=== PATIENT | male | born 2005 | race Caucasian/White ===

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

== ENCOUNTER 2023-12-03 14:03 | Inpatient (IN) | payer SELFPAY ==
--- OUTSIDE RECORDS SUMMARY | 2023-12-03 14:06 | XMS REPORT | Continuity of Care Document ---
Author Name Unknown Address [address] [place] [address] [facility] Address [address] [place] [address] Care Team Providers Care Deputy Chief Magistrate Name Role Phone Andrew Padilla Kan Primary Care Physician [phone] Fabiana EDUARDO, Olga Aviles Attending Clinician Unavailab le Doctor Unassigned, [place] Attending Clinician U navailable Only, Ang Db Test Attending Clinician Unavailshannan Singh MD, Wendy Attending Clinician [phone] Payers Payer Name Policy Type Policy Number Effective Date Expiration Date Source [facility]AN [id number] 2018-Present Medicaid [id number] 2019 00:00:00 [facility] Allergies, Adverse Reactions, Alerts Allergy Name Allergy Type Status Severity Reaction(s) Onset Date Inactive Date Treating Clinician Comments Source NO KNOWN ALLERGIE S Drug Class Active Univers [facility] Social History Social Habit Start Date Stop Date Quantity Comments Source Sexual [facility] Exposure to SARS-CoV-2 (event) 2021-03-09 00:00:00 2021-04-08 09:17:00 Yes [facility] Sex Assigned At 2005 00:00:00 2005 00:00:00 [facility] Smoking Status Start Date Stop Date Source Tobacco smoking consumption unknown [facility] Medications Ordered Medication Name Filled Medication Name Start Date Stop Date Current Medication? Ordering Clinician Indication Dosage Frequency Signature (SIG) Comments Components Source neomycin-po lymyxin-hyd rocortisone 3.5-10,000- 1 mg/mL-unit/ mL-% otic susp 09-01 00:00: 00 Yes [id number] Apply 2-4 drops daily to removed nail borders, following epsom salt soaks in warm water, then bandage [facility] Encounters Start Date/Time End Date/Time Encounter Type Admission Type Attending Clinicians Care Facility Care Department Encounter ID Source 2021-04-09 00:00:00 2021-04-09 00:00:00 Letter (Out) Olga Jung [facility] [id number] [facility] 2021-04-09 00:00:00 2021-04-09 00:00:00 Patient Secure Msg Doctor Unassigned, [place] [facility] 1..[id number] [facility] 2021-04-08 09:10:30 2021-04-08 09:20:30 Laboratory Only Only, Ang Db Test [facility] [id number] [facility] 2021-04-08 09:15:00 2021-04-08 09:15:00 Outpatient R [facility] [id number] [facility]
[2023-12-03] MEDS ORDERED: dexAMETHasone 10 MG/ML VIAL ONE (14:22)
[2023-12-03] MEDS ORDERED: NA CHLORIDE 0.9% 1,000 ML ONE ×2 (14:23→15:56)
[2023-12-03] MEDS ORDERED: ONDANSETRON 4 MG/2 ML VIAL ONE (14:33)
[2023-12-03 14:40] LABS: Absolute Lymphocytes (CBC) 0.6 K/uL (0.7-4.9); Absolute Monocytes 1.4 K/uL (0.1-1.3); Absolute Neutrophil 10.2 K/uL (1.8-8.0); Basophils % 0.2 % (0-1.3); Hematocrit 52.8 % (39.6-49.0); Hemoglobin 17.5 g/dL (13.6-17.9); Lymphocytes % 5.1 % (15.3-44.8); MCHC 33.1 g/dL (32.0-36.0); MCV 84.6 fL (80-100); MPV 8.7 fL (7.6-11.3); Monocytes % 11.5 % (3.3-12.3); Neutrophils % 83.2 % (41.7-73.7); Nucleated Red Blood Cells % 0.2 % (0-0); Platelets 167 thou/uL (152-406); RBC Red Blood Cell Count 6.25 M/uL (4.33-5.43); Red Cell Distribution Width 14.6 % (12.1-15.2)
[2023-12-03 14:53] LABS: ALT/SGPT 218 U/L (16-61); Albumin 3.9 g/dL (3.4-5.0); Alkaline Phosphatase 87 U/L (45-117); Anion Gap 9.2 mEq/L (5.0-15.0); BUN Blood Urea Nitrogen 29 mg/dL (7-18); Bicarbonate 27 mEq/L (21-32); Bilirubin Total 0.6 mg/dL (0.2-1.0); Glomerular Filtration Rate 45 ml/min (=/>90); Glucose Level 108 mg/dL (74-106); Lipase 13 U/L (13-75); Potassium 4.2 mEq/L (3.5-5.1); Protein, Total 7.9 g/dL (6.4-8.2); Sodium Level 136 mEq/L (136-145)
--- NOTE | 2023-12-03 15:05 | RAD REPORT ---
EXAM DESCRIPTION: CT - Head C Spine Cap Wo Con - 12/03/2023 2:33 pm CLINICAL HISTORY: Head and neck injury with chest and abdominal pain status post fall. Right leg num bness TECHNIQUE: Computed axial tomography of head, neck, chest, abdomen and pelvis obtained. IV and oral contrast not requested. Coronal and sagittal reconstruction performed. All CT scans are performed using dose optimization technique as appropriate and may include automated exposure control or mA/KV adjustment according to patient size. COMPARISON: None FINDINGS: An intracranial bleed is not seen. The ventricles are normal in caliber. An extra-axial fluid collection is not noted. Fluid within the sinuses/mastoids is not seen. A cervical fracture is not seen. No dislocation is noted. The evaluation of mediastinum, marie, vessels, solid organs and bowel are limited secondary to the lac k of contrast administration. A mediastinal hematoma is not noted. A pleural effusion is not seen. A lung contusion is not present. The liver,spleen, pancreas, adrenals,kidneys and bladder do not demonstrate an acute traumatic injury The musculature of medial compartment right thigh and right gluteus is thickened and edematous with e anna involving the fascia IMPRESSION: No acute intracranial abnormality is seen. A cervical fracture is not visualized. If the patient continues to have symptoms to suggest intracran ial/spinal cord pathology MRI be recommended No acute traumatic abnormality involving the chest, abdomen or pelvis The musculature of the medial compartment right thigh and right gluteus is thickened and edematous wi th edema involving the fascia . This has the appearance of a myositis
[2023-12-03 15:32] LABS: AST/SGOT 1172 U/L (15-37)
[2023-12-03] MEDS ORDERED: HYDROCODONE/APAP 7.5/325 MG TAB ONE (15:55)
[2023-12-03 15:58] LABS: PTT, Activated Partial Thromb 31.5 SECONDS (24.3-36.9); Protime INR 1.28
[2023-12-03 16:09] LABS: Specific Gravity 1.009 (1.005-1.030); Sqamous Epithelial <5 /HPF (None Seen); Urine Bacteria <20 /HPF (<20); Urine Bilirubin NEGATIVE (Negative); Urine Blood 3+ (OVER) (Negative); Urine Clarity Extremely Turbid (Clear); Urine Color Colorless (Yellow); Urine Culture Reflex Order NOT NEEDED; Urine Glucose NEGATIVE (Negative); Urine Ketones NEGATIVE (Negative); Urine Micro Reflex YN NO BILL MICROSCOPIC; Urine Mucus Slight /HPF (None Seen); Urine Nitrite NEGATIVE (Negative); Urine Protein 1+ (Negative); Urine RBC <5 /HPF (None Seen); Urine Urobilinogen Normal (Normal); Urine WBC Clump Occasional /HPF (None Seen); Urine pH 5.5 (5.0-7.0)
[2023-12-03 16:20] LABS: Barbiturates NEGATIVE (NEGATIVE); Benzodiazepines NEGATIVE (NEGATIVE); Cocaine NEGATIVE (NEGATIVE); METHAMPHETAM NEGATIVE (NEGATIVE); Methadone NEGATIVE (NEGATIVE); Opiates NEGATIVE (NEGATIVE); Phencyclidine NEGATIVE (NEGATIVE); THC Cannibis POSITIVE (NEGATIVE)
[2023-12-03 16:34] LABS: Creatine Phosphokinase > 13020 U/L (39-308)
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
[2023-12-03] MEDS: D5W 1,000 ML with NA BICARB 8.4% 50 MEQ IV SCH (18:23)
[2023-12-03 18:53] VITALS: O2SAT 99
[2023-12-03 18:54] VITALS: BMI 19.5
[2023-12-03] MEDS: CODEINE 30MG/APAP 300MG TAB PO PRN (21:45)
[2023-12-04 07:06] LABS: Absolute Lymphocytes (CBC) 0.6 K/uL (0.7-4.9); Absolute Monocytes 1.1 K/uL (0.1-1.3); Absolute Neutrophil 10.2 K/uL (1.8-8.0); Basophils % 0.2 % (0-1.3); Hematocrit 46.9 % (39.6-49.0); Hemoglobin 15.7 g/dL (13.6-17.9); Lymphocytes % 5.4 % (15.3-44.8); MCH 28.4 pg (27.0-35.0); MCHC 33.5 g/dL (32.0-36.0); MCV 84.7 fL (80-100); MPV 8.6 fL (7.6-11.3); Monocytes % 8.9 % (3.3-12.3); Neutrophils % 85.5 % (41.7-73.7); Platelets 169 thou/uL (152-406); RBC Red Blood Cell Count 5.54 M/uL (4.33-5.43); Red Cell Distribution Width 14.7 % (12.1-15.2)
[2023-12-04 07:33] LABS: Albumin 3.4 g/dL (3.4-5.0); Albumin/Globulin Ratio 0.9 (1.1-1.8); Anion Gap 5.1 mEq/L (5.0-15.0); Bilirubin Total 0.5 mg/dL (0.2-1.0); Globulin 3.6 g/dL (2.3-3.5); Magnesium 2.6 mg/dL (1.6-2.4); Potassium 4.1 mEq/L (3.5-5.1)
[2023-12-04 08:08] LABS: Blood Morphology Comment NOT SEEN (NOT SEEN); Platelet Estimate ADEQ; White Blood Cell Scan OK (OK)
--- NOTE | 2023-12-04 09:15 | P.PN ---
Subjective Date of Service: 12/04/23 Chief Complaint: Rhabdomyolysis Right leg pain controlled. Analgesia No reported suicidal thoughts, Physical Exam General: Alert, In no apparent distress, Oriented x3 HEENT: Other (right cheek abraision) Neck: Supple, 2+ carotid pulse no bruit Respiratory: Clear to auscultation bilaterally, Normal air movement Cardiovascular: No edema, Normal pulses, Regular rate/rhythm Capillary refill: <2 Seconds Gastrointestinal: Normal bowel sounds, Soft and benign Musculoskeletal: No clubbing, No swelling, Other (Right leg pain with range of motion) Integumentary: Other (right thigh abrasions from cutting, CDI, no drainage) Neurological: Normal speech, Normal strength at 5/5 x4 extr <Ana Miller - Last Filed: 12/04/23 09:16> Date of Service: 12/04/23 <Raymundo Camacho - Last Filed: 12/04/23 16:52> Review of Systems Per HPI <Ana Miller - Last Filed: 12/04/23 09:16> Physical Examination - Vital Signs Temperature: 97.2 F Blood Pressure: 123/74 Pulse: 72 Respirations: 14 Pulse Ox (%): 98 - Studies Laboratory Data (last 24 hrs) 12/03/23 12/03/23 12/03/23 15:40 14:26 14:26 WBC 12.20 H Hgb 17.5 Hct 52.8 H Plt Count 167 PT 14.0 H INR 1.28 APTT 31.5 Sodium 136 Potassium 4.2 BUN 29 H Creatinine 2.12 H Glucose 108 H Total Bilirubin 0.6 AST 1172 H ALT 218 H Alkaline Phosphatase 87 Lipase 13 <Ana Miller - Last Filed: 12/04/23 09:16> Assessment And Plan - Plan Assessment plan Rhabdomyolysis Leukocytosis Judicious IV fluid, trend CK, UA [id number] Myoglobin pending Acute kidney injury Hematuria Improved overnight with IV fluid Trend kidney function UA 3+ blood, turbid Right thigh myocytitis As needed analgesics, Fall precaution Transaminitis AST 1172, 1330 [id number], 321 Substance abuse Urine drug screen positive THC History of cutting, History of suicidal thoughts Psych eval History of ADHD Currently not on medications Full code DVT heparin Diet regular Disposition pending psych eval Discharge Plan: Home - Code Status/Comfort Care Code Status: Full Code Critical Care: No Time Spent Managing PTS Care (In Minutes): 35 <Ana Miller - Last Filed: 12/04/23 09:16> Date of Service: 12/04/23 Patient chart was reviewed and patient was seen and examined. Had a long talk with family. Agree with the assessment and plan. Patient presented with rhabdomyolysis. Trending enzymes along with myoglobin. Most of the MDM was done by myself and plan of care was discussed with ERICK as well as the patient. Plan to discharge once myoglobin improved. Anticipated length of stay is 3 to 4 days. <Raymundo Camacho - Last Filed: 12/04/23 16:52>
[2023-12-04] MEDS: NA CHLORIDE 0.9% 1,000 ML IV SCH (10:16)
[2023-12-04] MEDS: METHYLPREDNISOLONE 125 MG INJ IV ONE (14:35)
[2023-12-04] MEDS: NA CHLORIDE 0.9% 1,000 ML IV ONE (14:36)
--- NOTE | 2023-12-05 07:33 | P.PN ---
Subjective Date of Service: 12/05/23 Chief Complaint: Rhabdomyolysis Right leg pain controlled. Analgesia No reported suicidal thoughts, Physical Exam General: Alert, In no apparent distress, Oriented x3 HEENT: Other (right cheek abraision) Neck: Supple, 2+ carotid pulse no bruit Respiratory: Clear to auscultation bilaterally, Normal air movement Cardiovascular: No edema, Normal pulses, Regular rate/rhythm Capillary refill: <2 Seconds Gastrointestinal: Normal bowel sounds, Soft and benign Musculoskeletal: No clubbing, No swelling, Other (Right leg pain with range of motion) Integumentary: Other (right thigh abrasions from cutting, CDI, no drainage) Neurological: Normal speech, Normal strength at 5/5 x4 extr Review of Systems per HPI Physical Examination - Vital Signs Temperature: 98.1 F Blood Pressure: 108/62 Pulse: 55 Respirations: 15 Pulse Ox (%): 98 Assessment And Plan - Plan Assessment plan Rhabdomyolysis Leukocytosis Judicious IV fluid, trend CK, UA [id number] Myoglobin pending Acute kidney injury Hematuria Improved overnight with IV fluid Trend kidney function UA 3+ blood, turbid Right thigh myocytitis As needed analgesics, Fall precaution Transaminitis AST 1172, 1330 [id number], 321 Substance abuse Urine drug screen positive THC History of cutting, History of suicidal thoughts Psych eval History of ADHD Currently not on medications Full code DVT heparin Diet regular Disposition pending psych eval Discharge Plan: Home - Code Status/Comfort Care Code Status: Full Code Critical Care: No Time Spent Managing PTS Care (In Minutes): 35
[2023-12-05 08:23] LABS: Absolute Basophils 0.1 K/uL (0-0.5); Absolute Lymphocytes (CBC) 1.6 K/uL (0.7-4.9); Absolute Neutrophil 6.7 K/uL (1.8-8.0); Basophils % 0.5 % (0-1.3); Eosinophils % 0.2 % (0-4.4); Hematocrit 45.5 % (39.6-49.0); Lymphocytes % 17.5 % (15.3-44.8); MCHC 32.9 g/dL (32.0-36.0); MCV 85.1 fL (80-100); Monocytes % 10.4 % (3.3-12.3); Neutrophils % 71.4 % (41.7-73.7); Platelets 151 thou/uL (152-406); RBC Red Blood Cell Count 5.35 M/uL (4.33-5.43); Red Cell Distribution Width 14.2 % (12.1-15.2)
[2023-12-05 08:40] LABS: Albumin 3.2 g/dL (3.4-5.0); Anion Gap 5.2 mEq/L (5.0-15.0); Bilirubin Total 0.6 mg/dL (0.2-1.0); Globulin 3.2 g/dL (2.3-3.5); Potassium 4.2 mEq/L (3.5-5.1); Protein, Total 6.4 g/dL (6.4-8.2)
[2023-12-05] MEDS: NA CHLORIDE 0.9% 500 ML IV ONE (10:37)
[2023-12-05] MEDS: NA CHLORIDE 0.9% 1,000 ML IV ONE (10:49)
[2023-12-05] MEDS ORDERED: NA CHLORIDE 0.9% 1,000 ML IV ONE (15:08)
--- NOTE | 2023-12-06 01:44 | P.DS ---
Discharge Date: 12/05/23 Disposition: ROUTINE DISCHARGE Discharge Condition: GOOD Reason for Admission: Rhabdomyolysis Brief History of Present Illness: 17 year old male with past medical history ADHD, hx of cutting, SI thoughts presents to the emergency room for Right leg pain, numbness, discolored urine. He reports being at a [employer] last night, smoking marijuana, "passing out out and waking up after being on the ground all night. He thinks what he smoke was laced with something." He reports right lower extremity leg pain, numbness that is worse with ambulation.He reports pain started after waking up on the ground today. RLE superficial cutting albert he reports from suicidal ideation. 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 He denies having SI at this moment, he denies having a current plan. He denies fever, NVD, or dizziness. no reported leg swelling. Plan to admit of rhabdomyolysis. Hospital Course: Patient's clinical symptoms are much better. Patient states he no longer having any pain and ambulating without difficulty. Patient's CPK is been improving. Patient is ALT/AST are improved. Patient's renal function is stable. Patient's urine output is clear. Patient was advised to drink 3 L of fluid daily, as patient did not want to stay in the hospital for further treatment. Patient was told to come back to the ER if his urine became dark and discolored. Vital Signs/Physical Exam: Temp Pulse Resp BP Pulse Ox 98.1 F 55 15 108/62 98 12/05/23 15:04 12/05/23 15:04 12/05/23 15:04 12/05/23 15:04 12/05/23 15:04 General: Alert, In no apparent distress, Oriented x3 Laboratory Data at Discharge: WBC 9.40 thou/uL (4.3-10.9) 12/05/23 08:06 Hgb 15.0 g/dL (13.6-17.9) 12/05/23 08:06 Hct 45.5 % (39.6-49.0) 12/05/23 08:06 Plt Count 151 thou/uL (152-406) L 12/05/23 08:06 PT 14.0 SECONDS (9.5-12.5) H 12/03/23 15:40 INR 1.28 12/03/23 15:40 APTT 31.5 SECONDS (24.3-36.9) 12/03/23 15:40 Sodium 142 mEq/L (136-145) 12/05/23 08:06 Potassium 4.2 mEq/L (3.5-5.1) 12/05/23 08:06 BUN 18 mg/dL (7-18) 12/05/23 08:06 Creatinine 1.28 mg/dL (0.70-1.30) 12/05/23 08:06 Glucose 94 mg/dL (74-106) 12/05/23 08:06 Magnesium 2.6 mg/dL (1.6-2.4) H 12/04/23 06:46 Total Bilirubin 0.6 mg/dL (0.2-1.0) 12/05/23 08:06 AST 956 U/L (15-37) H 12/05/23 08:06 ALT 328 U/L (16-61) H 12/05/23 08:06 Alkaline Phosphatase 62 U/L (45-117) 12/05/23 08:06 Lipase 13 U/L (13-75) 12/03/23 14:26 Home Medications: NK [No Home Meds] 12/03/23 Physician Discharge Instructions: -DC IV and DC home -Follow-up with PCP in 1 to 2 weeks -Please call Dr. Camacho at [phone] if any questions regarding hospital stay -Please call nursing station at [phone] if any nursing or medication questi ons -Return to the emergency room if symptoms worsen -Encouraged to drink 3 to 4 L of fluids daily for the next 5 to 7 days -No strenuous activities x 1 week -If discolored urine return to the emergency room -Repeat CPK in 1 week Diet: Regular Activity: No strenuous activities Followup: NONE,NONE [Primary Care Provider] - Time spent managing pt's care (in minutes): 35
[2023-12-06 02:17] VITALS: BP 118/68; TEMP 98.3
== END 2023-12-05 17:52 | disposition home or self-care (01) | DRG 558 ==
LOC: ER 14:03 → ERHOLD 17:18 → 2ND 17:40
PROVIDERS: ADMIT Hospitalist; ATTEND Hospitalist
DX: M62.82 Rhabdomyolysis (principal); N17.9 Acute kidney failure, unspecified; R45.851 Suicidal ideations; M60.851 Other myositis, right thigh; F12.10 Cannabis abuse, uncomplicated; D72.829 Elevated white blood cell count, unspecified; F17.210 Nicotine dependence, cigarettes, uncomplicated; R31.9 Hematuria, unspecified; R74.01 Elevation of levels of liver transaminase levels
CPT/HCPCS: 36415; 70450; 71250; 72125; 80053; 80307; 81001; 82077; 82550; 83605; 83690; 83735; 83874; 85025; 85610; 85730; 87040; 96361; 96374; 96375; 99285; J1100; J2405; J2919; J7030

== ENCOUNTER 2024-08-24 15:53 | Emergency (ER) | payer SELFPAY ==
[2024-08-24 16:37] LABS: SARS-CoV-2 Antigen CONTROL BLUE LINE VIS/BG OK; SARS-CoV-2 Antigen Rapid Res Negative (Negative)
--- NOTE | 2024-08-24 16:56 | ER ---
Nurse's Notes [facility] Name: Gino Ziegler Age: 18 yrs Sex: Male : 2005 Arrival Date: 08/24/2024 Time: 15:53 Bed IW2 Private MD: Diagnosis: Influenza due to unidentified influenza virus with other respiratory manifestations Presentation: 08/24 16:03 Chief complaint: Patient states: cough x 2 days, body aches that began last night. ss Parents recently diagnosed with flu A. Coronavirus screen: Client denies travel out of the [place] in the last 14 days. Ebola Screen: Patient denies exposure to infectious person. Patient denies travel to an Ebola-affected area in the 21 days before illness onset. Initial Sepsis Screen: Does the patient meet any 2 criteria? No. Patient's initial sepsis screen is negative. Does the patient have a suspected source of infection? No. Patient's initial sepsis screen is negative. Risk Assessment: Do you want to hurt yourself or someone else? Patient reports no desire to harm self or others. Onset of symptoms was August 22, 2024. 16:03 Method Of Arrival: Ambulatory ss 16:03 Acuity: FANY 4 ss Triage Assessment: 17:10 General: Appears in no apparent distress. uncomfortable, ill, Behavior is calm, vc1 cooperative, appropriate for age. EENT: Eyes are tearing on right eye and left eye Nares with drainage noted Reports nasal congestion. Neuro: Level of Consciousness is awake, alert, obeys commands, Oriented to person, place, time, situation, Appropriate for age. Respiratory: Airway is patent Respiratory effort is even, unlabored, Respiratory pattern is regular, symmetrical, Breath sounds are clear. Derm: Skin is intact, is healthy with good turgor, Skin is dry, Skin is normal, Skin temperature is warm. Historical: - Allergies: 16:04 No Known Allergies; ss - Home Meds: 16:04 None [Active]; ss - PMHx: 16:04 None; ss - PSHx: 16:04 FB removed from lung as a child; ss - Infectious Disease History:: Denies. - Social history:: Smoking status: Patient reports the use of cigarette tobacco products, smokes one-half pack cigarettes per day. Screenin:09 [facility] ED Fall Risk Assessment (Adult) History of falling in the last 3 months, vc1 including since admission No falls in past 3 months (0 pts) Confusion or Disorientation No (0 pts) Intoxicated or Sedated No (0 pts) Impaired Gait No (0 pts) Mobility Assist Device Used No (0 pt) Altered Elimination No (0 pt) Score/Fall Risk Level 0 - 2 = Low Risk Oriented to surroundings, Maintained a safe environment, Educated pt \T\ family on fall prevention, incl call for assistance when getting out of bed. Abuse screen: Denies threats or abuse. Nutritional screening: No deficits noted. Tuberculosis screening: No symptoms or risk factors identified. Vital Signs: 16:03 BP 121 / 79; Pulse 96; Resp 16; Temp 99.8(O); Pulse Ox 98% on R/A; Weight 72.57 kg; ss Height 6 ft. 4 in. ; Pain 5/10; 16:03 Body Mass Index 19.48 (72.57 kg, 193.04 cm) ss 16:03 Pain Scale: Adult ED Course: 15:57 Patient arrived in ED. sj2 16:01 Brian Easton PA is PHCP. cp 16:01 Roney Farris MD is Attending Physician. cp 16:04 Triage completed. ss 16:04 Arm band placed on left wrist. ss 17:10 treated and discharged from triage. Provided Education on: viral infection, treat vc1 symptoms. 17:10 No provider procedures requiring assistance completed. Patient did not have IV access vc1 during this emergency room visit. Administered Medications: No medications were administered Medication: 17:10 VIS not applicable for this client. vc1 Outcome: 16:55 Discharge ordered by MD. cp 17:11 Discharged to home ambulatory, vc1 17:11 Condition: good 17:11 Discharge instructions given to patient, Instructed on discharge instructions, follow up and referral plans. medication usage, Demonstrated understanding of instructions, follow-up care, medications, Prescriptions given X 3, 17:11 Patient left the ED. vc1 Signatures: Judith Figueroa RN RN Brian Easton PA PA cp Calcote, Vanessa, RN RN vc1 Franklin Brown sj2
--- NOTE | 2024-08-24 16:56 | EDPHYS ---
Physician Documentation [facility] Name: Gino Ziegler Age: 18 yrs Sex: Male : 2005 Arrival Date: 08/24/2024 Time: 15:53 Bed IW2 Private MD: ED Physician Roney Farris HPI: 08/24 16:50 This 18 yrs old Male presents to ER via Ambulatory with complaints of Cold Symptoms, cp FLU TESTING. 16:50 The patient or guardian reports cough, that is intermittent, flu symptoms, body aches, cp fever, chills. Onset: The symptoms/episode began/occurred yesterday. Reports close contact with parents who tested positive for flu recently. Historical: - Allergies: 16:04 No Known Allergies; ss - Home Meds: 16:04 None [Active]; ss - PMHx: 16:04 None; ss - PSHx: 16:04 FB removed from lung as a child; ss - Infectious Disease History:: Denies. - Social history:: Smoking status: Patient reports the use of cigarette tobacco products, smokes one-half pack cigarettes per day. ROS: 16:52 Constitutional: Positive for body aches, chills, fever, cp 16:52 ENT: Positive for sore throat, Negative for drainage from ear(s), ear pain, difficulty swallowing, difficulty handling secretions, 16:52 Respiratory: Positive for cough, with no reported sputum, 16:52 Abdomen/GI: Negative for abdominal pain, vomiting, diarrhea, constipation, 16:52 Neuro: Negative for altered mental status, 16:52 All other systems are negative, Exam: 16:53 Head/Face: Normocephalic, atraumatic. cp 16:53 Constitutional: The patient appears in no acute distress, alert, awake, non-toxic, well developed, well nourished, 16:53 Eyes: Periorbital structures: appear normal, Conjunctiva: normal, no exudate, no injection, Sclera: no appreciated abnormality, Lids and lashes: appear normal, bilaterally, 16:53 ENT: External ear(s): are unremarkable, Ear canal(s): are normal, clear, TM's: dullness, bilaterally, Nose: is normal, Mouth: Lips: moist, Oral mucosa: moist, Posterior pharynx: Airway: no evidence of obstruction, patent, Tonsils: no enlargement, no exudate, erythema, that is mild, exudate, is not appreciated, 16:53 Chest/axilla: Inspection: normal, 16:53 Cardiovascular: Rate: normal, 16:53 Respiratory: the patient does not display signs of respiratory distress, Respirations: normal, no use of accessory muscles, no retractions, labored breathing, is not present, Breath sounds: decreased breath sounds, are not appreciated, stridor, is not appreciated, + upper airway congestion. wheezing: is not appreciated, 16:53 Abdomen/GI: Exam negative for discomfort, distension, guarding, Inspection: abdomen appears normal, 16:53 Skin: no rash present. Vital Signs: 16:03 BP 121 / 79; Pulse 96; Resp 16; Temp 99.8(O); Pulse Ox 98% on R/A; Weight 72.57 kg; ss Height 6 ft. 4 in. ; Pain 5/10; 16:03 Body Mass Index 19.48 (72.57 kg, 193.04 cm) 16:03 Pain Scale: Adult ss MDM: 16:15 Differential diagnosis: bronchitis, flu, pneumonia, strep throat. cp 16:55 Medical Screening Exam initiated cp 16:55 Data reviewed: vital signs, nurses notes, lab test result(s), and as a result, I will cp discharge patient. 16:55 Counseling: I had a detailed discussion with the patient and/or guardian regarding the cp historical points, exam findings, and any diagnostic results supporting the discharge/admit diagnosis, lab results, to return to the emergency department if symptoms worsen or persist or if there are any questions or concerns that arise at home. 08/24 16:07 Order name: Flu ss 08/24 16:07 Order name: SARS RAPID ss Administered Medications: No medications were administered Disposition: 08/25 13:48 Chart complete. cp Disposition Summary: 08/24/24 16:55 Discharge Ordered Notes: Location: Home cp Problem: new cp Symptoms: are unchanged cp Condition: Stable cp Diagnosis - Influenza due to unidentified influenza virus with other respiratory manifestations cp Followup: cp - With: Private Physician - When: As needed - Reason: Worsening of condition Discharge Instructions: - Discharge Summary Sheet cp - Influenza, Adult cp Forms: - Medication Reconciliation Form cp - Antibiotic Education cp - Prescription Opioid Use cp - Patient Portal Instructions cp - Leadership Thank You Letter cp Prescriptions: - Bromfed DM 2-30-10 mg/5 mL Oral syrup - administer 10 milliliter ORAL route every 6 hours As needed as needed for cold cp symptoms; 240 milliliter; Refills: 0, Product Selection Permitted - Ibuprofen 800 mg Oral Tablet - take 1 tablet ORAL route every 8 hours As needed take with food; 30 tablet; cp Refills: 0, Product Selection Permitted - Tamiflu 75 mg Oral capsule - take 1 tablet ORAL route every 12 hours for 5 days; 10 tablet; Refills: 0, cp Product Selection Permitted Addendum: 08/27/2024 10:02 Co-signature as Attending Physician, Roney Farris MD I reviewed the patient's care r n provided by the Advanced Practice Provider and agree with the diagnosis and treatment plan. Signatures: Dispatcher [employer] EDRoney Tirado MD MD rn Blanchard, Shelby, RN RN ss Page, Corey, JACKI PA cp
[2024-08-24 17:22] VITALS: BP 121/79; TEMP 99.8; O2SAT 98
== END 2024-08-24 17:11 | disposition home or self-care (01) ==
LOC: ER 15:53
DX: J11.1 Influenza due to unidentified influenza virus with other respiratory manifestations (principal); Z11.52 Encounter for screening for COVID-19
CPT/HCPCS: 36415; 87804; 87811; 99283

== ENCOUNTER 2024-12-08 23:41 | Emergency (ER) | payer SELFPAY ==
--- OUTSIDE RECORDS SUMMARY | 2024-12-08 23:43 | XMS REPORT | Continuity of Care Document ---
Author Name Unknown Address [address] [place] [address] [facility] [place] Address [address] [place] [address] Care Team Providers Care Deputy Fire Chief Name Role Phone Andrew Padilla Primary Care Physician [phone] JOSE NI Attending Clinician Unavailable Fabiana EDUARDO, Olga Aviles Attending Clinician Unavailab le Doctor Unassigned, [place] Attending Clinician U navailable Only, Ang Db Test Attending Clinician UnavailWendy Dave MD Attending Clinician Payers Payer Name Policy Type Policy Number Effective Date Expiration Date Source [facility] [id number] 2018-Present Medicaid [id number] 2019 00:00:00 [facility] Allergies, Adverse Reactions, Alerts Allergy Name Allergy Type Status Severity Reaction(s) Onset Date Inactive Date Treating Clinician Comments Source NO KNOWN ALLERGIE S Drug Class Active [facility] Social History Social Habit Start Date Stop Date Quantity Comments Source Sexual orientation U [facility] Exposure to SARS-CoV-2 (event) 2021-03-09 00:00:00 2021-04-08 09:17:00 Yes [facility] Sex Assigned At 2005 00:00:00 2005 00:00:00 [facility] Smoking Status Start Date Stop Date Source Tobacco smoking consumption unknown [facility] Medications Ordered Medication Name Filled Medication Name Start Date Stop Date Current Medication? Ordering Clinician Indication Dosage Frequency Signature (SIG) Comments Components Source neomycin-po lymyxin-hyd rocortisone 3.5-10,000- 1 mg/mL-unit/ mL-% otic susp 2020-0 1-17 00:00: 00 Yes [id number] Apply 2-4 drops daily to removed nail borders, following epsom salt soaks in warm water, then bandage [facility] Encounters Start Date/Time End Date/Time Encounter Type Admission Type Attending [facility] Facility Care Department Encounter ID Source 2024-10-18 10:46:42 2024-10-23 09:30:[address] [facility] [id number] [facility] 2021-04-09 00:00:00 2021-04-09 00:00:00 Letter (Out) Olga Jung [facility] [id number] [facility] 2021-04-09 00:00:00 2021-04-09 00:00:00 Patient Secure Msg Doctor Unassigned, [place] [facility] [id number] [facility] 2021-04-08 09:10:30 2021-04-08 09:20:30 Laboratory Only Only, Ang Db Test [facility] [id number] [facility] 2021-04-08 09:15:00 2021-04-08 09:15:00 Outpatient R [facility] [id number] [facility]
[2024-12-09 00:26] LABS: Absolute Lymphocytes (CBC) 0.7 K/uL (0.7-4.9); Absolute Monocytes 1.3 K/uL (0.1-1.3); Absolute Neutrophil 13.7 K/uL (1.8-8.0); Basophils % 0.2 % (0-1.3); Eosinophils % 0.1 % (0-4.4); Hematocrit 48.1 % (39.6-49.0); Hemoglobin 15.7 g/dL (13.6-17.9); Lymphocytes % 4.4 % (15.3-44.8); MCH 28.2 pg (27.0-35.0); MCHC 32.7 g/dL (32.0-36.0); MCV 86.2 fL (80-100); MPV 9.3 fL (7.6-11.3); Monocytes % 8.1 % (3.3-12.3); Neutrophils % 87.2 % (41.7-73.7); Platelets 152 thou/uL (152-406); RBC Red Blood Cell Count 5.58 M/uL (4.33-5.43); Red Cell Distribution Width 14.9 % (12.1-15.2)
[2024-12-09 00:29] LABS: PT Prothrombin Time 11.5 SECONDS (10-13.0); PTT, Activated Partial Thromb 25.8 SECONDS (27.2-37.4); Protime INR 1.01
[2024-12-09 00:38] LABS: ALT/SGPT 57 U/L (16-61); AST/SGOT 45 U/L (15-37); Albumin 4.2 g/dL (3.4-5.0); Albumin/Globulin Ratio 1.3 (1.1-1.8); Alkaline Phosphatase 81 U/L (45-117); Anion Gap 19.2 mEq/L (5.0-15.0); BUN Blood Urea Nitrogen 27 mg/dL (7-18); Bicarbonate 17 mEq/L (21-32); Bilirubin Total 0.2 mg/dL (0.2-1.0); Globulin 3.3 g/dL (2.3-3.5); Glomerular Filtration Rate 61 ml/min (=/>90); Glucose Level 162 mg/dL (74-106); Potassium 4.2 mEq/L (3.5-5.1); Protein, Total 7.5 g/dL (6.4-8.2); Sodium Level 139 mEq/L (136-145)
[2024-12-09 00:44] LABS: Bilirubin Direct < 0.2 mg/dL (0-0.2)
[2024-12-09 02:06] LABS: Band Neutrophils 11 % (0-1); Differential Total Cells Count 100; Lymphocytes 4 % (15-42); Monocytes 9 % (0-10); Reactive Lymphocytes 4 %; Segmented Neutrophils 72 % (40-80)
[2024-12-09 02:07] LABS: Blood Morphology Comment NOT SEEN (NOT SEEN); Platelet Estimate ADEQ
[2024-12-09 02:09] LABS: Barbiturates NEGATIVE (NEGATIVE); Benzodiazepines NEGATIVE (NEGATIVE); Cocaine NEGATIVE (NEGATIVE); METHAMPHETAM NEGATIVE (NEGATIVE); Methadone NEGATIVE (NEGATIVE); Opiates NEGATIVE (NEGATIVE); Phencyclidine NEGATIVE (NEGATIVE); THC Cannibis POSITIVE (NEGATIVE)
--- NOTE | 2024-12-09 02:32 | ER ---
Nurse's Notes [facility]icki Name: Gino Ziegler Age: 18 yrs Sex: Male : 2005 Arrival Date: 12/08/2024 Time: 23:40 Bed 18 Private MD: Diagnosis: Opioid abuse;Suicide attempt;Opioid overdose Presentation: 12/08 23:40 Chief complaint: EMS states: [facility] FOUND HIM ON THE FLOOR DIFFICULTY ha1 BREATHING, POSSIBLE OVERDOSE. ON OUR ARRIVAL OXYGEN SATURATION ON THE LOW 80s. 0.5 mg NARCAN IV GIVEN . SYMPTOMS IMPROVED OXYGEN SATURATION 99 ON 3 L NASAL CANULA. REPORTS TAKING PERCOCET UNKNOWN NUMBER OF PILLS TAKEN. 23:40 Coronavirus screen: Client denies travel out of the [place] in the last 14 days. Ebola ha1 Screen: No symptoms or risks identified at this time. Initial Sepsis Screen: Does the patient meet any 2 criteria? No. Patient's initial sepsis screen is negative. Does the patient have a suspected source of infection? No. Patient's initial sepsis screen is negative. Risk Assessment: Do you want to hurt yourself or someone else? Patient reports no desire to harm self or others. Onset of symptoms was December 09, 2024. 23:40 Method Of Arrival: EMS: [facility] ha1 23:40 Acuity: FANY 2 ha1 Triage Assessment: 23:40 General: Appears uncomfortable, Behavior is drowsy. Pain: Denies pain. Neuro: Level of ha1 Consciousness is awake, obeys commands, confused, lethargic, Oriented to person, place, situation. Cardiovascular: Capillary refill < 3 seconds Patient's skin is warm and dry. Rhythm is atrial fibrillation. Respiratory: Airway is patent Respiratory effort is even, unlabored, Respiratory pattern is regular, symmetrical. GI: No signs and/or symptoms were reported involving the gastrointestinal system. Abdomen is flat, non-distended. Derm: Skin is healthy with good turgor, Skin is moist, Skin is normal. Musculoskeletal: Circulation, motion, and sensation intact. 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 - Infectious Disease History:: Denies. - Social history:: Smoking status: unknown. Screenin:40 [facility] ED Fall Risk Assessment (Adult) History of falling in the last 3 months, ha1 including since admission Yes- single mechanical fall (1 pt) Confusion or Disorientation Yes (5 pts) Intoxicated or Sedated Yes (3 pts) Impaired Gait Yes (1 pt) Mobility Assist Device Used No (0 pt) Altered Elimination Yes (1 pt) Score/Fall Risk Level 3 or more points = High Risk Oriented to surroundings, Maintained a safe environment, Educated pt \\T\\ family on fall prevention, incl call for assistance when getting out of bed, Hourly rounding (assess needs \\T\\ fall precautionary measures) done. Abuse screen: Denies threats or abuse. Denies injuries from another. Nutritional screening: No deficits noted. Tuberculosis screening: No symptoms or risk factors identified. Assessment: 23:40 Reassessment: SEE TRIAGE ASSESSMENT. ha1 23:50 Reassessment: REPORTS SUICIDAL IDEATIONS STATES " I WAS ATTEMPTING TO KILL MYSELF BY ha1 OVERDOSING ON THIS PILLS.". 12/09 00:20 Reassessment: CONTACTED POISON CONTROL BOOKMAKER MAP STATES " CHECK LIVER ENZYMES, ha1 TYLENOL LEVEL, AND REPEAT EK, IF SECOND EKG SHOWS ATRIAL FIBRILLATION TREAT IT INDICATED PER HOSPITAL PROTOCOL. . 00:40 Reassessment: Patient and/or family updated on plan of care and expected duration. Pain ha1 level reassessed. Cardiovascular: Patient's skin is warm and dry. Rhythm is sinus tachycardia. Respiratory: Airway is patent Respiratory effort is even, unlabored, Respiratory pattern is regular, symmetrical. 01:50 Reassessment: Patient and/or family updated on plan of care and expected duration. Pain ha1 level reassessed. Patient is alert, oriented x 3, equal unlabored respirations, skin warm/dry/pink. Cardiovascular: Patient's skin is warm and dry. Rhythm is sinus rhythm. 01:59 General: LISA MALDONADO (MOTHER) [phone]. bm8 02:10 Reassessment: Patient and/or family updated on plan of care and expected duration. Pain ha1 level reassessed. Patient is alert, oriented x 3, equal unlabored respirations, skin warm/dry/pink. NOTIFIED DR. HENDRICKS LOW BP . BP AT 91/49. 03:30 Reassessment: No changes from previously documented assessment. Patient and/or family rg5 updated on plan of care and expected duration. Pain level reassessed. 03:30 General: Appears in no apparent distress. comfortable, Behavior is calm, cooperative, rg5 appropriate for age. Pain: Denies pain. Neuro: Level of Consciousness is awake, alert, Oriented to person, place, time. Cardiovascular: Patient's skin is warm and dry. Respiratory: Airway is patent Respiratory effort is even, unlabored, Respiratory pattern is regular, symmetrical. GI: No signs and/or symptoms were reported involving the gastrointestinal system. : No signs and/or symptoms were reported regarding the genitourinary system. EENT: No signs and/or symptoms were reported regarding the EENT system. Derm: Skin is intact, Skin is dry, Skin is normal, Skin temperature is warm. Musculoskeletal: Circulation, motion, and sensation intact. Range of motion: intact in all extremities. 07:00 General: Appears comfortable, Behavior is calm, cooperative, appropriate for age, aa5 Reports fatigue for 0-12 hours. Pain: Denies pain. Neuro: Level of Consciousness is awake, alert, obeys commands, Oriented to person, place, time, situation, Appropriate for age. Cardiovascular: Heart tones S1 S2 present Rhythm is sinus rhythm. Respiratory: Airway is patent Respiratory effort is even, unlabored, Respiratory pattern is regular, symmetrical. GI: Abdomen is non-distended, Bowel sounds present X 4 quads. Abd is soft and non tender X 4 quads. Patient currently denies nausea. : No signs and/or symptoms were reported regarding the genitourinary system. EENT: No signs and/or symptoms were reported regarding the EENT system. Derm: Skin is pink, warm \\T\\ dry. Musculoskeletal: Range of motion: intact in all extremities. 08:11 Reassessment: Pt's sister in room speaking to patient. . aa5 09:00 Reassessment: Pt sleeping. . aa5 10:46 Reassessment: Pt sleeping. . aa5 11:53 Reassessment: Patient is alert, oriented x 3, equal unlabored respirations, skin aa5 warm/dry/pink. Pt sitting up in bed. . 12:00 Reassessment: Lying on stretcher, eyes closed, respirations even and unlabored. me1 Sleeping. 14:00 Reassessment: Father and step mother at bedside visiting. me1 14:18 Reassessment: vomiting, Dr Farris informed. Rec'd order for zofran 4 mg IV. Patient me1 states, "I usually throw up when Im on opiates". 16:00 Reassessment: Lying on stretcher, eyes closed, respirations even and unlabored. me1 Sleeping. 18:00 Reassessment: Lying on stretcher, eyes closed, respirations even and unlabored. me1 Sleeping. 20:00 Reassessment: Lying on stretcher, eyes closed, respirations even and unlabored. me1 Sleeping. 22:00 Reassessment: Lying on stretcher, eyes closed, respirations even and unlabored. me1 Sleeping. 22:30 Reassessment: No changes from previously documented assessment. Patient and/or family rg5 updated on plan of care and expected duration. Pain level reassessed. General: Appears in no apparent distress. comfortable, Behavior is calm, cooperative, appropriate for age, quiet, sleeping. 12/10 00:00 Reassessment: No changes from previously documented assessment. Patient and/or family rg5 updated on plan of care and expected duration. Pain level reassessed. General: Appears in no apparent distress. comfortable, Behavior is calm, cooperative, appropriate for age, quiet, sleeping. 02:00 Reassessment: No changes from previously documented assessment. Patient and/or family rg5 updated on plan of care and expected duration. Pain level reassessed. General: Appears in no apparent distress. comfortable, Behavior is calm, cooperative, appropriate for age, quiet, sleeping. Cardiovascular: No deficits noted. Respiratory: No deficits noted. Airway is patent Breath sounds are clear. 04:02 Reassessment: No changes from previously documented assessment. Patient and/or family rg5 updated on plan of care and expected duration. Pain level reassessed. General: Appears in no apparent distress. comfortable, Behavior is calm, cooperative, appropriate for age, sleeping. Cardiovascular: No deficits noted. Respiratory: No deficits noted. 06:27 Reassessment: No changes from previously documented assessment. Patient and/or family rg5 updated on plan of care and expected duration. Pain level reassessed. General: Appears in no apparent distress. comfortable, Behavior is calm, cooperative, appropriate for age, quiet, sleeping. Cardiovascular: No deficits noted. Respiratory: No deficits noted. 07:55 General: Appears in no apparent distress. comfortable, Behavior is calm, cooperative, ld1 appropriate for age. Pain: Denies pain. Neuro: Level of Consciousness is obeys commands, Oriented to person, place, time, situation. Cardiovascular: Capillary refill < 3 seconds Patient's skin is warm and dry. Rhythm is sinus rhythm. Respiratory: Airway is patent Respiratory effort is even, unlabored. GI: Abdomen is flat, non-distended. : No signs and/or symptoms were reported regarding the genitourinary system. EENT: No signs and/or symptoms were reported regarding the EENT system. Derm: No signs and/or symptoms reported regarding the dermatologic system. Musculoskeletal: No signs and/or symptoms reported regarding the musculoskeletal system. 12:47 Reassessment: No changes from previously documented assessment. Patient and/or family ld1 updated on plan of care and expected duration. Pain level reassessed. 19:05 General: Appears in no apparent distress. comfortable, Behavior is calm, cooperative, me1 appropriate for age, Reports fatigue for 0-12 hours. Pain: Denies pain. Neuro: Level of Consciousness is awake, alert, obeys commands, Oriented to person, place, time, situation, Appropriate for age. Cardiovascular: Heart tones S1 S2 Capillary refill < 3 seconds Patient's skin is warm and dry. Respiratory: Airway is patent Respiratory effort is even, unlabored, Respiratory pattern is regular, symmetrical. GI: Abdomen is flat, non-distended. : No signs and/or symptoms were reported regarding the genitourinary system. EENT: No signs and/or symptoms were reported regarding the EENT system. Derm: Skin is intact, is healthy with good turgor, Skin is dry, Skin is pink, warm \\T\\ dry. Skin temperature is warm. Musculoskeletal: No signs and/or symptoms reported regarding the musculoskeletal system. Circulation, motion, and sensation intact. Range of motion: intact in all extremities. 21:00 Reassessment: Patient is alert, oriented x 3, equal unlabored respirations, skin me1 warm/dry/pink. 23:00 Reassessment: Patient is alert, oriented x 3, equal unlabored respirations, skin me1 warm/dry/pink. 12/11 00:15 General: Appears in no apparent distress. comfortable. General: Behavior is calm, al5 cooperative. Pain: Denies pain. Neuro: Level of Consciousness is awake, alert, obeys commands, Oriented to person, place, time, situation. Cardiovascular: Capillary refill < 3 seconds Patient's skin is warm and dry. Respiratory: Airway is patent Respiratory effort is even, unlabored, Respiratory pattern is regular, symmetrical. GI: No signs and/or symptoms were reported involving the gastrointestinal system. : No signs and/or symptoms were reported regarding the genitourinary system. EENT: No signs and/or symptoms were reported regarding the EENT system. Derm: Skin is intact, is healthy with good turgor, Skin is pink, warm \\T\\ dry. normal. Musculoskeletal: No signs and/or symptoms reported regarding the musculoskeletal system. 02:00 Reassessment: EYES CLOSED. Respiratory: Airway is patent Respiratory effort is even, ha1 unlabored, Respiratory pattern is regular, symmetrical. 03:55 Reassessment: Patient appears in no apparent distress at this time. No changes from al5 previously documented assessment. Patient and/or family updated on plan of care and expected duration. Pain level reassessed. Patient is alert, oriented x 3, equal unlabored respirations, skin warm/dry/pink. 06:55 Reassessment: Patient appears in no apparent distress at this time. No changes from al5 previously documented assessment. Patient and/or family updated on plan of care and expected duration. Pain level reassessed. Patient is alert, oriented x 3, equal unlabored respirations, skin warm/dry/pink. 07:00 Reassessment: RECD REPORT FROM ALEJO EDUARDO. PSYCH DISTURBANCE, PT ON CLOSE OBS. PSYCH bp TRANSFER PENDING ACCEPTANCE. 13:10 Reassessment: REPORT TO WENDY EDUARDO AT [facility]. bp 14:11 Reassessment: EMS AT B/S FOR TRANSPORT. bp Psych: 12/08 23:40 [place] Suicide Severity Screening: In the past month, have you wished you were ha1 or wished you could go to sleep and not wake up? Patient responds "yes." "In the past month, have you actually had any thoughts of killing yourself?" Patient responds "yes." "In your lifetime, have you ever done anything, started to do anything, or prepared to do anything to end your life?" Patient responds "yes." Patient reports suicidal intent occurred greater than 3 months prior. ATTEMPTED TO OVERDOSE. Subjective: Patient's mood is sad. Subjective: Having thoughts of suicide. Plan for suicide is OVERDOSE. Objective: Patient is cooperative, Speech is soft. Interventions: Patient placed in hospital gown. Searched person for dangerous items. Safety Checks: Door is open. IN FRONT OF NURSE STATION. PERCOCET. 12/09 07:00 Commitment: Patient will be a voluntary commitment. 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 Interventions: Pt in paper scrubs, no belongings in the room. Safety Checks: See paper chart for complete documentation and complete safety checks. Pt reports he attempted suicide by overdose with Percocet, pt states "I don't remember how many percs I took". 07:00 [place] Suicide Severity Screening: In the past month, have you wished you were aa5 or wished you could go to sleep and not wake up? Patient responds "yes." "In the past month, have you actually had any thoughts of killing yourself?" Patient responds "yes." "In your lifetime, have you ever done anything, started to do anything, or prepared to do anything to end your life?" Patient responds "yes." Patient reports suicidal intent within 3 past months. Subjective: Patient's mood is sad, Delusions are denied, Hallucinations are denied Having thoughts of suicide. Vital Signs: 12/08 23:40 BP 103 / 76; Pulse 167; Resp 13 S; Temp 97.2(O); Pulse Ox 99% on 3 lpm NC; Weight 79.38 ha1 kg; Height 5 ft. 10 in. ; 12/09 00:27 BP 99 / 59; Pulse 151; Resp 13 S; Pulse Ox 100% on 3 lpm NC; ha1 00:40 BP 97 / 57; Pulse 112; Resp 15 S; Pulse Ox 100% on 2 lpm NC; ha1 01:50 BP 94 / 61; Pulse 100; Resp 14 S; Pulse Ox 100% on 2 lpm NC; ha1 02:10 BP 91 / 49; Pulse 99; Resp 14 S; Pulse Ox 97% on R/A; ha1 02:40 BP 88 / 57; Pulse 96; Resp 14 S; Pulse Ox 96% on R/A; ha1 03:00 BP 91 / 58; Pulse 96; Resp 14 S; Pulse Ox 96% on R/A; ha1 03:30 BP 88 / 50; Pulse 93; Resp 17; Pulse Ox 95% ; Pain 0/10; rg5 04:25 BP 90 / 48; Pulse 93; Resp 18; Pulse Ox 97% ; rg5 05:37 BP 91 / 50; Pulse 92; Resp 18; Pulse Ox 96% ; rg5 06:00 BP 82 / 53; Pulse 87; Resp 91; Pulse Ox 98% on R/A; Pain 0/10; rg5 07:10 BP 93 / 48; Pulse 92; Resp 16 S; Pulse Ox 98% on R/A; aa5 08:00 BP 102 / 54; Pulse 90; Resp 14 S; Pulse Ox 99% on R/A; aa5 09:00 BP 97 / 52; Pulse 85; Resp 16 S; Pulse Ox 99% on R/A; aa5 12:00 BP 97 / 54; Pulse 77; Resp 10; Pulse Ox 99% ; me1 13:00 BP 103 / 46; Pulse 83; Resp 11; Pulse Ox 99% ; me1 14:00 BP 106 / 63; Pulse 85; Resp 18; Pulse Ox 97% ; me1 14:15 BP 106 / 63; rn 15:00 BP 101 / 52; Pulse 78; Resp 11; Pulse Ox 99% ; me1 16:00 BP 92 / 57; Pulse 81; Resp 17; Pulse Ox 97% ; me1 17:00 BP 99 / 76; Pulse 77; Resp 13; Pulse Ox 97% ; me1 18:00 BP 100 / 52; Pulse 79; Resp 14; Pulse Ox 98% ; me1 19:00 BP 107 / 48; Pulse 75; Resp 12; Pulse Ox 97% ; me1 19:15 BP 107 / 48; Pulse 70; Resp 17; Temp 99.3; Pulse Ox 99% ; Pain 5/10; am7 20:00 BP 92 / 49; Pulse 79; Resp 12; Pulse Ox 97% ; me1 21:00 BP 97 / 47; Pulse 73; Resp 12; Pulse Ox 97% ; me1 22:00 BP 94 / 42; Pulse 66; Resp 12; Pulse Ox 96% ; me1 12/10 00:00 BP 106 / 66; Pulse 73; Resp 18; Pulse Ox 98% ; rg5 02:00 BP 105 / 47; Pulse 62; Pulse Ox 97% ; rg5 06:26 BP 107 / 69; Pulse 72; Resp 18; Pulse Ox 98% on R/A; Pain 0/10; rg5 07:55 BP 91 / 46; Pulse 62; Resp 9; Pulse Ox 97% ; ld1 08:45 BP 121 / 60; Pulse 76; Resp 18; Pulse Ox 100% on R/A; ld1 12:47 BP 121 / 76; Pulse 78; Resp 18; Temp 97.8(TE); Pulse Ox 98% on R/A; ld1 13:53 BP 108 / 37; Pulse 75; Resp 18; Pulse Ox 96% on R/A; ld1 18:57 BP 130 / 72; Pulse 78; Resp 18; Pulse Ox 97% on R/A; ld1 12/11 03:00 BP 122 / 60; Pulse 72; Resp 16; Pulse Ox 98% on R/A; al5 08:00 BP 119 / 57; Pulse 67; Resp 14; Pulse Ox 99% ; bp 14:14 BP 116 / 57; Pulse 71; Resp 16; Pulse Ox 99% ; bp 12/08 23:40 Body Mass Index 25.11 (79.38 kg, 177.8 cm) ha1 03:30 Pain Scale: Adult rg5 06:00 Pain Scale: Adult rg5 19:15 Pain Scale: Adult am7 06:26 Pain Scale: Adult rg5 ED Course: 12/08 23:40 Patient arrived in ED. rv1 23:40 Patient has correct armband on for positive identification. Placed in gown. Bed in low ha1 position. Call light in reach. Side rails up X2. SITTER OUTSIDE PATIENTS ROOM. 23:40 Arm band placed on right wrist. EKG completed in triage. Results shown to MD. ha1 23:40 Provided Education on: PLAN OF CARE . Client placed on continuous cardiac and pulse ha1 oximetry monitoring. NIBP monitoring applied. electronic device monitor on. 23:42 Monroe Hendricks DO is Attending Physician. ms3 12/09 00:10 Triage completed. ha1 00:25 Acetaminophen Sent. ha1 00:25 BMP Sent. ha1 00:25 CBC with Diff Sent. ha1 00:25 Ethanol Sent. ha1 00:25 Hepatic Function Sent. ha1 00:25 Protime (+inr) Sent. ha1 00:25 Ptt, Activated Sent. ha1 00:25 Salicylate Sent. ha1 01:16 Urine collected: clean catch specimen, clear. sa1 02:00 Jocelyne Johnson, RN is Primary Nurse. ha1 03:30 No provider procedures requiring assistance completed. rg5 06:41 faxed patient clinical information to the following facilities in attempt to find eb placement. 07:00 Client placed on continuous cardiac and pulse oximetry monitoring. NIBP monitoring aa5 applied. electronic device monitor on. Pulse ox on. NIBP on. 07:09 Attending Physician role handed off by Monroe Hendricks DO ms3 07:09 Roney Farris MD is Attending Physician. ms3 11:31 Primary Nurse role handed off by Jocelyne Johnson, JAYCE eb 12:00 Report given to JAYCE Richardson. aa5 13:25 Debra Mccormick, JAYCE is Primary Nurse. nv1 17:16 called the [facility] Crisis line Unique will page a screener to come evaluate the eb patient. 17:48 [facility] called/ screener will be here in 30 minutes. eb 18:21 [facility] here to screen. eb 19:02 Faxed Chart to [facility], [facility] \\T\\ [facility] for transfer. hw 20:26 [facility] called, Facility is full until Wednesday. hw 23:11 Refaxed Pt chart to [facility], [facility], [facility], [facility], and [facility]. 12/10 00:10 Assisted to bathroom. rg5 02:13 Lacey from [facility] called and requested new WBC, [facility], and last 24 of vital hw signs. Labs were drawn and results were faxed. still waiting for accepteance. 04:05 Refaxed Pt info again. hw 04:26 Talked to Shirley at [facility]. Updated labs were received, Pending nurse review. hw 09:27 Patient made a list of contacts and wants them placed in chart in case paper gets ty lost. Dad - [phone], Mom - [phone], Sorcha - [phone], Tyra - [phone], Satnam - [phone]. 16:18 Attending Physician role handed off by Roney Farris MD kamron 16:18 Brian Anders MD is Attending Physician. kamron 19:39 Faxed updated clinicals and exclusionary to [facility]. rv1 12/11 03:47 Re-faxed pt clinicals to the following facilities for placement; [facility] [address] [place] [address]. 07:04 Primary Nurse role handed off by Debra Mccormick, JAYCE bd 07:06 Jovan Morris, JAYCE is Primary Nurse. bp 07:15 refaxed chart to [facility]. bd 07:28 contacted by Nataliya Rondon from [facility], no bed available at this time, but bd there will be discharges today, pt will get a bed when one becomes available. 07:37 Attending Physician role handed off by Brian Anders MD ms3 07:37 Monroe Hendricks DO is Attending Physician. ms3 13:10 IV discontinued, intact, bleeding controlled, No redness/swelling at site. Pressure bp dressing applied. Administered Medications: 12/09 00:01 Drug: NS 0.9% IV 1000 ml IV at 1 bolus Per protocol; to be given as a bolus over 60 ha1 minutes Route: IV; Rate: 1 bolus; Site: right antecubital; 03:29 Follow up: IV Status: Completed infusion; IV Intake: 1000ml rg5 02:18 Drug: NS 0.9% IV 1000 ml IV at 1000 ml once; to be given as a bolus over 60 minutes bm8 Route: IV; Rate: 1000 ml; Site: right antecubital; 03:25 Follow up: IV Status: Completed infusion; IV Intake: 1000ml rg5 03:29 Drug: NS 0.9% IV 1000 ml IV at 1000 ml once; to be given as a bolus over 60 minutes rg5 Route: IV; Rate: 1000 ml; Site: right antecubital; 04:13 Follow up: IV Status: Completed infusion; IV Intake: 1000ml rg5 07:46 Drug: Calcium Gluconate IVPB 1 grams IVPB once over 60 mins; (mix in NS 100 mL) Route: aa5 IVPB; Infused Over: 60 mins; Site: right antecubital; 08:46 Follow up: IV Status: Completed infusion aa5 13:56 Drug: Acetaminophen PO 650 mg PO once Route: PO; me1 14:59 Follow up: Response: No adverse reaction me1 14:17 Drug: Zoloft 50 mg PO once Route: PO; me1 14:59 Follow up: Response: No adverse reaction me1 14:19 Drug: Ondansetron IVP 4 mg IVP once; over 2 minutes Route: IVP; Site: right antecubital;me1 14:59 Follow up: Response: No adverse reaction; Nausea is decreased me1 18:50 Drug: Ibuprofen PO 400 mg PO once Route: PO; me1 20:32 Follow up: Response: No adverse reaction; Pain is decreased me1 12/10 17:20 Drug: Nicoderm CQ Transdermal Patch 21 mg/24 hr 1 patches Transdermal once Route: ld1 Transdermal; Site: affected area; 19:13 Follow up: Response: No adverse reaction me1 Medication: 12/09 00:30 VIS not applicable for this client. ha1 Intake: 03:25 IV: 1000ml; Total: 1000ml. rg5 03:29 IV: 1000ml; Total: 2000ml. rg5 04:13 IV: 1000ml; Total: 3000ml. rg5 Outcome: 02:32 ER care complete, transfer ordered by . ms3 12/11 14:12 Transferred by ground EMS Note: [facility] bp Condition: stable Instructed on the need for transfer, 14:15 Patient left the ED. bp Signatures: Teri Jamison Corey, MD MD cha Calderon, Audri, RN RN aa5 Jovan Morris RN RN Maia Dill Marcus, DO ms3 Annamaria Hendricks RN RN ld1 Jocelyne Johnson RN RN ha1 Lory Rudd rv1 Debra Mccormick RN RN me1 Osmany Vasquez Brad RN JAYCE bm8 Asaf Amor RN RN rg5 Alejo Puga RN RN elizabeth5 Sultan Giovana 1 Inge Mcclelland Valerie Tyson am7 Corrections: (The following items were deleted from the chart) 12/09 00:12 12/08 23:40 PMHx: None; ha1 ha1 12/09 00:53 12/08 23:40 Chief complaint: EMS states: [facility] FOUND HIM ON THE FLOOR ha1 DIFFICULTY BREATHING, POSSIBLE OVERDOSE. ON OUR ARRIVAL OXYGEN SATURATION ON THE LOW 80s. 0.5 mg NARCAN IV GIVEN . SYMPTOMS IMPROVED OXYGEN SATURATION 99 ON 3 L NASAL CANULA ha1 12/09 01:08 00:45 BP 97 / 57; Pulse 112bpm; Resp 15bpm; Spontaneous; Pulse Ox 100% 2 lpm Nasal ha1 Cannula; ha1 03:31 02:00 Reassessment: Patient and/or family updated on plan of care and expected ha1 duration. Pain level reassessed. Patient is alert, oriented x 3, equal unlabored respirations, skin warm/dry/pink. NOTIFIED DR. HENDRICKS LOW BP . BP AT 91/49 ha1 17:23 17:16 called the [facility] [facility] to page a screener to come evaluate the eb patient. eb 12/10 04:02 12/09 23:11 Refaxed Pt chart to [facility], [facility], [facility], [facility], [facility], and [facility]. hw
--- NOTE | 2024-12-09 02:33 | EDPHYS ---
Physician Documentation [facility] Name: Gino Ziegler Age: 18 yrs Sex: Male : 2005 Arrival Date: 12/08/2024 Time: 23:40 Bed 18 Private MD: ED Physician Monroe Flores HPI: 12/08 23:54 This 18 yrs old Male presents to ER via Unassigned with complaints of overdose/ ms3 suicidal. 23:54 18-year-old male with past medical history of opioid abuse presents to the emergency co3 department via [facility] status post opioid overdose. Patient states he received a Percocet from a friend. When asked why he took the Percocet he responded because "I am tired.". Patient endorses suicidal ideation. Patient denies hallucinations or homicidal ideations.. 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 - Infectious Disease History:: Denies. - Social history:: Smoking status: unknown. ROS: 23:54 Constitutional: Negative for fever, and chills. Cardiovascular: Negative for chest ms3 pain, and palpitations. Respiratory: Negative for shortness of breath, cough, wheezing, and pleuritic chest pain, Abdomen/GI: Negative for abdominal pain, nausea, vomiting, diarrhea, and constipation, MS/Extremity: Negative for injury and deformity, Skin: Negative for injury, rash, and discoloration, 23:54 Psych: Positive for suicide gesture, suicidal ideation, Exam: 23:54 Constitutional: This is a well developed, well nourished patient who is awake, alert, ms3 and in no acute distress. 23:54 Cardiovascular: Regular rate and rhythm with a normal S1 and S2. No gallops, murmurs, or rubs. Normal PMI, no JVD. No pulse deficits. Respiratory: Lungs have equal breath sounds bilaterally, clear to auscultation and percussion. No rales, rhonchi or wheezes noted. No increased work of breathing, no retractions or nasal flaring. Abdomen/GI: Soft, non-tender, with normal bowel sounds. No distension or tympany. No guarding or rebound. No evidence of tenderness throughout. Skin: Warm, dry with normal turgor. Normal color with no rashes, no lesions, and no evidence of cellulitis. 23:54 Cardiovascular: Rate: tachycardic, Rhythm: regular, Pulses: no pulse deficits are appreciated, Heart sounds: normal, normal S1and S2, 23:54 ECG was reviewed by the Attending Physician. ms3 12/10 16:57 ECG was reviewed by the Attending Physician. kamron Vital Signs: 12/08 23:40 BP 103 / 76; Pulse 167; Resp 13 S; Temp 97.2(O); Pulse Ox 99% on 3 lpm NC; Weight 79.38 ha1 kg; Height 5 ft. 10 in. ; 12/09 00:27 BP 99 / 59; Pulse 151; Resp 13 S; Pulse Ox 100% on 3 lpm NC; ha1 00:40 BP 97 / 57; Pulse 112; Resp 15 S; Pulse Ox 100% on 2 lpm NC; ha1 01:50 BP 94 / 61; Pulse 100; Resp 14 S; Pulse Ox 100% on 2 lpm NC; ha1 02:10 BP 91 / 49; Pulse 99; Resp 14 S; Pulse Ox 97% on R/A; ha1 02:40 BP 88 / 57; Pulse 96; Resp 14 S; Pulse Ox 96% on R/A; ha1 03:00 BP 91 / 58; Pulse 96; Resp 14 S; Pulse Ox 96% on R/A; ha1 03:30 BP 88 / 50; Pulse 93; Resp 17; Pulse Ox 95% ; Pain 0/10; rg5 04:25 BP 90 / 48; Pulse 93; Resp 18; Pulse Ox 97% ; rg5 05:37 BP 91 / 50; Pulse 92; Resp 18; Pulse Ox 96% ; rg5 06:00 BP 82 / 53; Pulse 87; Resp 91; Pulse Ox 98% on R/A; Pain 0/10; rg5 07:10 BP 93 / 48; Pulse 92; Resp 16 S; Pulse Ox 98% on R/A; aa5 08:00 BP 102 / 54; Pulse 90; Resp 14 S; Pulse Ox 99% on R/A; aa5 09:00 BP 97 / 52; Pulse 85; Resp 16 S; Pulse Ox 99% on R/A; aa5 12:00 BP 97 / 54; Pulse 77; Resp 10; Pulse Ox 99% ; me1 13:00 BP 103 / 46; Pulse 83; Resp 11; Pulse Ox 99% ; me1 14:00 BP 106 / 63; Pulse 85; Resp 18; Pulse Ox 97% ; me1 14:15 BP 106 / 63; rn 15:00 BP 101 / 52; Pulse 78; Resp 11; Pulse Ox 99% ; me1 16:00 BP 92 / 57; Pulse 81; Resp 17; Pulse Ox 97% ; me1 17:00 BP 99 / 76; Pulse 77; Resp 13; Pulse Ox 97% ; me1 18:00 BP 100 / 52; Pulse 79; Resp 14; Pulse Ox 98% ; me1 19:00 BP 107 / 48; Pulse 75; Resp 12; Pulse Ox 97% ; me1 19:15 BP 107 / 48; Pulse 70; Resp 17; Temp 99.3; Pulse Ox 99% ; Pain 5/10; am7 20:00 BP 92 / 49; Pulse 79; Resp 12; Pulse Ox 97% ; me1 21:00 BP 97 / 47; Pulse 73; Resp 12; Pulse Ox 97% ; me1 22:00 BP 94 / 42; Pulse 66; Resp 12; Pulse Ox 96% ; me1 04 00:00 BP 106 / 66; Pulse 73; Resp 18; Pulse Ox 98% ; rg5 02:00 BP 105 / 47; Pulse 62; Pulse Ox 97% ; rg5 06:26 BP 107 / 69; Pulse 72; Resp 18; Pulse Ox 98% on R/A; Pain 0/10; rg5 07:55 BP 91 / 46; Pulse 62; Resp 9; Pulse Ox 97% ; ld1 08:45 BP 121 / 60; Pulse 76; Resp 18; Pulse Ox 100% on R/A; ld1 12:47 BP 121 / 76; Pulse 78; Resp 18; Temp 97.8(TE); Pulse Ox 98% on R/A; ld1 13:53 BP 108 / 37; Pulse 75; Resp 18; Pulse Ox 96% on R/A; ld1 18:57 BP 130 / 72; Pulse 78; Resp 18; Pulse Ox 97% on R/A; ld1 12/11 03:00 BP 122 / 60; Pulse 72; Resp 16; Pulse Ox 98% on R/A; al5 08:00 BP 119 / 57; Pulse 67; Resp 14; Pulse Ox 99% ; bp 14:14 BP 116 / 57; Pulse 71; Resp 16; Pulse Ox 99% ; bp 12/08 23:40 Body Mass Index 25.11 (79.38 kg, 177.8 cm) ha1 03:30 Pain Scale: Adult rg5 06:00 Pain Scale: Adult rg5 19:15 Pain Scale: Adult am7 06:26 Pain Scale: Adult rg5 MDM: 12/08 23:42 Medical Screening Exam initiated ms3 23:54 Differential diagnosis: depression, Opioid overdose. ms3 12/09 06:45 Data reviewed: vital signs, nurses notes, lab test result(s), and as a result, I will ms3 transfer patient. Consideration of Admission/Observation Patient to be transferred. I considered the following discharge prescriptions or medication management in the emergency department Medications were administered in the Emergency Department. See MAR. Independent interpretation of the following test(s) in the Emergency Department EKG: See my EKG interpretation above. Historians other than the Patient: EMS: [facility]. Counseling: I had a detailed discussion with the patient and/or guardian regarding the historical points, exam findings, and any diagnostic results supporting the discharge/admit diagnosis, lab results, the need to transfer to another facility, [facility] does not immediately have the required specialist. 07:09 Transition of care: After a detail discussion of the patient's case, care is ms3 transferred to Roney Farris MD. 07:35 ED course: Patient signed out to me by Dr. Flores, pending transfer to rn forensic facility for intentional overdose. I was told patient has been hypotensive since arrival, received 3 L bolus, is awake, overall feeling better. Plan is to transfer to psychiatric facility. I added daily total CK and gave calcium given hypocalcemia and hypotension to see if helps with blood pressure. Will reevaluate.. 08:01 ED course: Patient wide-awake, eating breakfast and using his phone. Blood pressure rn 93/48. Denies feeling dizziness or lightheaded. Patient reports only took Percocet or what he believes was Percocet. Patient and sister both state that he has bought Percocet from somebody and it has been something different. Patient is not sure what could have been in it but he believes it to be Percocet. Denies coingestion. Patient takes Zoloft but did not overdose on Zoloft. Denies taking stimulant.. 12/11 08:01 ED course: Patient reevaluated this morning. Patient is alert and orient x 4, no ms3 apparent distress, nontoxic-appearing, speaking full sentences. Patient is laying in bed comfortably without complaints. Patient updated on status.. 12/08 23:53 Order name: Acetaminophen; Complete Time: 02:15 ms3 12/08 23:53 Order name: BMP; Complete Time: 02:15 ms3 12/08 23:53 Order name: CBC with Diff; Complete Time: 02:15 ms3 12/08 23:53 Order name: Ethanol; Complete Time: 02:15 ms3 12/08 23:53 Order name: Hepatic Function; Complete Time: 02:15 ms3 12/08 23:53 Order name: Protime (+inr); Complete Time: 02:15 ms3 12/08 23:53 Order name: Ptt, Activated; Complete Time: 02:15 ms3 12/08 23:53 Order name: Salicylate; Complete Time: 02:15 ms3 12/08 23:53 Order name: Urine Drug Screen; Complete Time: 02:15 ms3 12/09 00:35 Order name: Manual Differential; Complete Time: 02:15 EDMS 12/09 07:08 Order name: CK; Complete Time: 10:06 rn 12/09 23:49 Order name: CBC with Diff; Complete Time: 16:18 ha1 12/09 23:49 Order name: BMP; Complete Time: 16:18 ha1 12/10 18:20 Order name: CBC with Diff; Complete Time: 08:02 ld1 12/08 23:53 Order name: EKG; Complete Time: 23:53 ms3 12/08 23:53 Order name: EKG - Nurse/Tech; Complete Time: 00:24 ms3 12/08 23:53 Order name: IV Saline Lock; Complete Time: 00:24 ms3 12/08 23:53 Order name: Labs collected and sent; Complete Time: 00:25 ms3 12/08 23:53 Order name: O2 Per Protocol; Complete Time: 00:25 ms3 12/08 23:53 Order name: O2 Sat Monitoring; Complete Time: 00:25 ms3 12/08 23:53 Order name: Suicide Precautions; Complete Time: 00:25 ms3 12/08 23:53 Order name: Suicide Screening ([place]); Complete Time: 00:25 ms3 EC/25 23:54 Rate is 165 beats/min. Rhythm is regular. QRS [place] is Normal. QRS interval is normal. ms3 Clinical impression: Atrial Fibrillation. Interpreted by me. Reviewed by me. 12/09 00:56 Rate is 113 beats/min. Rhythm is regular. QRS [place] is Normal. MT interval is normal. ms3 QRS interval is normal. Clinical impression: Sinus tachycardia. Interpreted by me. Reviewed by me. 12/10 16:57 Rate is 70 beats/min. Rhythm is regular. QRS [place] is Normal. MT interval is normal. QRS kamron interval is normal. QT interval is normal. No Q waves. T waves are Normal. No ST changes noted. Clinical impression: Normal ECG and No evidence of ischemia. Interpreted by me. Reviewed by me. Administered Medications: 12/09 00:01 Drug: NS 0.9% IV 1000 ml IV at 1 bolus Per protocol; to be given as a bolus over 60 ha1 minutes Route: IV; Rate: 1 bolus; Site: right antecubital; 03:29 Follow up: IV Status: Completed infusion; IV Intake: 1000ml rg5 02:18 Drug: NS 0.9% IV 1000 ml IV at 1000 ml once; to be given as a bolus over 60 minutes bm8 Route: IV; Rate: 1000 ml; Site: right antecubital; 03:25 Follow up: IV Status: Completed infusion; IV Intake: 1000ml rg5 03:29 Drug: NS 0.9% IV 1000 ml IV at 1000 ml once; to be given as a bolus over 60 minutes rg5 Route: IV; Rate: 1000 ml; Site: right antecubital; 04:13 Follow up: IV Status: Completed infusion; IV Intake: 1000ml rg5 07:46 Drug: Calcium Gluconate IVPB 1 grams IVPB once over 60 mins; (mix in NS 100 mL) Route: aa5 IVPB; Infused Over: 60 mins; Site: right antecubital; 08:46 Follow up: IV Status: Completed infusion aa5 13:56 Drug: Acetaminophen PO 650 mg PO once Route: PO; me1 14:59 Follow up: Response: No adverse reaction me1 14:17 Drug: Zoloft 50 mg PO once Route: PO; me1 14:59 Follow up: Response: No adverse reaction me1 14:19 Drug: Ondansetron IVP 4 mg IVP once; over 2 minutes Route: IVP; Site: right antecubital;me1 14:59 Follow up: Response: No adverse reaction; Nausea is decreased me1 18:50 Drug: Ibuprofen PO 400 mg PO once Route: PO; me1 20:32 Follow up: Response: No adverse reaction; Pain is decreased me1 12/10 17:20 Drug: Nicoderm CQ Transdermal Patch 21 mg/24 hr 1 patches Transdermal once Route: ld1 Transdermal; Site: affected area; 19:13 Follow up: Response: No adverse reaction me1 Disposition Summary: 12/09/24 02:32 Transfer Ordered Notes: Transfer Location: [facility] ms3 Reason: Higher level of care ms3 Condition: Stable ms3 Problem: new ms3 Symptoms: are unchanged ms3 Accepting Physician: (12/11/24 14:15) bp Diagnosis - Opioid abuse ms3 - Suicide attempt ms3 - Opioid overdose ms3 Forms: - Medication Reconciliation Form ms3 - SBAR form ms3 Signatures: Dispatcher [employer] EDBrian Brooke MD MD cha Nieto, Roman, MD MD rn Calderon, Audri, RN RN aa5 Jovan Morris RN RN Monroe Luz, DO ms3 Annamaria Flores RN RN ld1 Jocelyne Johnson, RN RN ha1 Debra Mccormick RN RN me1 Hamilton Jordan, RN RN bm8 Asaf Amor, RN RN rg5 Corrections: (The following items were deleted from the chart) 12/08 23:53 23:53 ACETAMINOPHEN+C.LAB.BRZ ordered. EDMS EDMS 23:53 23:53 BASIC METABOLIC PANEL+C.LAB.BRZ ordered. EDMS EDMS 23:53 23:53 CBC+H.LAB.BRZ ordered. EDMS EDMS 23:53 23:53 ETHANOL+C.LAB.BRZ ordered. EDMS EDMS 23:53 23:53 HEPATIC FUNCTION+C.LAB.BRZ ordered. EDMS EDMS 23:53 23:53 PROTIME (+INR)+COAG.LAB.BRZ ordered. EDMS EDMS 23:53 23:53 PTT, ACTIVATED+COAG.LAB.BRZ ordered. EDMS EDMS 23:53 23:53 SALICYLATE+C.LAB.BRZ ordered. EDMS EDMS 23:53 23:53 URINE DRUG SCREEN+UC.LAB.BRZ ordered. EDMS EDMS 12/09 00:12 12/08 23:40 PMHx: None; ha1 ha1 12/09 00:56 12/08 23:54 Rate is 165 beats/min. Rhythm is regular. QRS [place] is Normal. QRS interval ms3 is normal. Clinical impression: Sinus tachycardia. Interpreted by me. Reviewed by me. ms3 12/09 23:49 23:49 CBC+H.LAB.BRZ ordered. EDMS EDMS 23:49 23:49 BASIC METABOLIC PANEL+C.LAB.BRZ ordered. EDMS EDMS 12/10 18:20 18:20 CBC+H.LAB.BRZ ordered. EDMS EDMS 12/11 14:15 12/09 02:32 Dr ms3 bp
[2024-12-09] MEDS ORDERED: NA CHLORIDE 0.9% 1,000 ML ONE ×2 (03:20)
[2024-12-09] MEDS ORDERED: CALCIUM GLUCONATE 1 GM IVPB 1 GM/50 ML BAG IV ONE (07:27)
[2024-12-09] MEDS ORDERED: ACETAMINOPHEN 325 MG TABLET ONE (13:53)
[2024-12-09] MEDS ORDERED: SERTRALINE HCL 50 MG TAB PO ONE (14:00)
[2024-12-09] MEDS ORDERED: ONDANSETRON 4 MG/2 ML VIAL ONE (14:16)
[2024-12-09] MEDS ORDERED: IBUPROFEN 400 MG TAB ONE (18:47)
[2024-12-10 01:06] LABS: Absolute Lymphocytes (CBC) 1.7 K/uL (0.7-4.9); Absolute Monocytes 0.8 K/uL (0.1-1.3); Absolute Neutrophil 6.3 K/uL (1.8-8.0); Basophils % 0.4 % (0-1.3); Eosinophils % 0.5 % (0-4.4); Hemoglobin 14.1 g/dL (13.6-17.9); Lymphocytes % 18.9 % (15.3-44.8); MCHC 34.3 g/dL (32.0-36.0); MCV 84.4 fL (80-100); MPV 9.9 fL (7.6-11.3); Monocytes % 9.2 % (3.3-12.3); Nucleated Red Blood Cells % 0.1 % (0-0); Platelets 107 thou/uL (152-406); RBC Red Blood Cell Count 4.85 M/uL (4.33-5.43); Red Cell Distribution Width 14.6 % (12.1-15.2)
[2024-12-10 01:11] LABS: Anion Gap 7.7 mEq/L (5.0-15.0); Potassium 3.7 mEq/L (3.5-5.1)
[2024-12-10] MEDS ORDERED: NICOTINE 21 MG/PAT TD ONE (17:13)
[2024-12-10 19:27] LABS: Absolute Eosinophils 0.1 K/uL (0-0.5); Absolute Lymphocytes (CBC) 1.1 K/uL (0.7-4.9); Absolute Monocytes 0.8 K/uL (0.1-1.3); Absolute Neutrophil 5.6 K/uL (1.8-8.0); Basophils % 0.4 % (0-1.3); Eosinophils % 1.2 % (0-4.4); Hematocrit 40.6 % (39.6-49.0); Hemoglobin 14.4 g/dL (13.6-17.9); Lymphocytes % 14.3 % (15.3-44.8); MCH 29.6 pg (27.0-35.0); MCHC 35.5 g/dL (32.0-36.0); MCV 83.4 fL (80-100); MPV 9.2 fL (7.6-11.3); Neutrophils % 73.1 % (41.7-73.7); Platelets 115 thou/uL (152-406); RBC Red Blood Cell Count 4.87 M/uL (4.33-5.43); Red Cell Distribution Width 14.3 % (12.1-15.2)
--- NOTE | 2024-12-11 12:14 | EKG ---
Test Date: 2024-12-08 Test Time: 23:54:43 [employer]: MEASUREMENT RESULTS: Intervals: Rate: 165 OR: QRSD: 80 QT: 282 QTc: 467 [place]: P: OR: QRS: 79 T: 51 INTERPRETIVE STATEMENTS: Atrial fibrillation with rapid ventricular response Nonspecific ST abnormality Abnormal ECG No previous ECG available for comparison Electronically Signed On 12-11-24 12:08:58 CDT by Man Holt
== END 2024-12-11 14:15 ==
LOC: ER 23:41
DX: T40.2X2A Poisoning by other opioids, intentional self-harm, initial encounter (principal); F32.A Depression, unspecified
CPT/HCPCS: 36415; 93005